=== PATIENT | male | born 1960 | race Caucasian/White ===

== ENCOUNTER 2017-09-22 07:30 | Inpatient (IN) | payer OTHER ==
[~2017-09-22] VITALS: Ht 175.3 cm; Wt 124.7 kg
[2017-10-06] VITALS (8 sets, daily range): BP systolic 105–140; BP diastolic 45–84
[2017-10-06] MEDS ORDERED: TERAZOSIN5 MG PO (06:48)
[2017-10-06] MEDS ORDERED: ISOSORB MONO30 MG PO (06:49)
[2017-10-06] MEDS ORDERED: [UNRECOGNIZED DRUG - OTHER] PO (06:49)
[2017-10-06] MEDS ORDERED: PRILOSEC20 MG/CAP PO (06:49)
[2017-10-06] MEDS ORDERED: GEMFIBROZIL PO (06:49)
[2017-10-06] MEDS ORDERED: [UNRECOGNIZED DRUG - OTHER] PO (06:50)
[2017-10-06] MEDS ORDERED: LIPITOR20 M1 PO (06:50)
[2017-10-06] MEDS ORDERED: RANITIDINE150 M1 PO (06:50)
[2017-10-06] MEDS ORDERED: CALCIUM500 M4 PO (06:50)
[2017-10-06] MEDS ORDERED: BENADRYL 25MG C25 MG PO (06:51)
[2017-10-06] MEDS ORDERED: VENLAFAXINE HCL75 M1 PO (06:51)
[2017-10-06] MEDS ORDERED: LEVOTHYROXIN50 MCG PO (06:51)
[2017-10-06] MEDS ORDERED: COUMADIN5 MG PO (06:52)
[2017-10-06] MEDS ORDERED: ASPIRIN81 MG PO (06:52)
[2017-10-06 07:24] LABS: HEMATOCRIT 44.6 % (39.0-50.0); HEMOGLOBIN 14.8 g/dl (14.0-18.0); IMMATURE GRANULOCYTES 0.3 % (0.0-1.0); MEAN CORPUSCULAR HGB 30.2 pG CALC (26.0-32.0); MEAN CORPUSCULAR HGB CONC 33.2 g/L CALC (32.0-36.0); NEUT# 4.94 thou/uL (1.82-7.42); RED BLOOD COUNT 4.9 mill/uL (4.70-6.10); RED CELL DISTRI WIDTH 13.3 % (11.5-15.5)
[2017-10-06 07:58] LABS: INTERNATIONAL NORMALIZED RATIO 1.1 RATIO (0.7-1.3)
[2017-10-07] VITALS: BP 121/66
[2017-10-07 05:00] VITALS: BP 100/62
[2017-10-07 05:35] LABS: IMMATURE GRANULOCYTES 0.5 % (0.0-1.0); MEAN CELL VOLUME 93.6 fL CALC (80.0-100.0); MEAN CORPUSCULAR HGB 30.3 pG CALC (26.0-32.0); MEAN CORPUSCULAR HGB CONC 32.3 g/L CALC (32.0-36.0); NEUT# 15.64 thou/uL (1.82-7.42); RED BLOOD COUNT 3.93 mill/uL (4.70-6.10); RED CELL DISTRI WIDTH 13.4 % (11.5-15.5)
[2017-10-07 05:39] LABS: HEMATOCRIT 36.8 % (39.0-50.0); HEMOGLOBIN 11.9 g/dl (14.0-18.0)
[2017-10-07 06:02] LABS: ANION GAP 17 (6-22 (CALC)); BUN 15 mg/dL (9-20); BUN/CREATININE RATIO 13 (12-20 (CALC)); CARBON DIOXIDE 30 mmol/l (22-30); CHLORIDE 97 mmol/l (95-108); CREATININE 1.1 mg/dL (0.7-1.3); GFR > 60 ML/MIN (>=60 (CALC)); GFR FOR AFR.AMER. > 60 ML/MIN (>=60 (CALC)); POTASSIUM 4.5 mmol/l (3.5-5.1); SODIUM 139 mmol/l (137-146)
[2017-10-07 06:32] LABS: INTERNATIONAL NORMALIZED RATIO 1.1 RATIO (0.7-1.3); PROTHROMBIN TIME 12.7 SECONDS (9.0-12.5)
[2017-10-07 08:50] VITALS: BP 108/53
[2017-10-07 09:35] LABS: URINE BILIRUBIN - DIPSTICK NEGATIVE (NEGATIVE); URINE BLOOD DIPSTICK LARGE (NEGATIVE); URINE COLOR YELLOW; URINE GLUCOSE - DIPSTICK NEGATIVE (NEGATIVE); URINE KETONE NEGATIVE (NEGATIVE); URINE LEUK ESTERASE SMALL (Negative); URINE NITRITE - DIPSTICK NEGATIVE (Negative); URINE PROTEIN - DIPSTICK TRACE mg/dL (NEG-TRACE); URINE SPECIFIC GRAVITY >=1.030; URINE UROBILINOGEN - DIPSTICK 0.2 E.U./dL (0.2)
[2017-10-07 09:44] LABS: URINE CLARITY CLOUDY; URINE RBC 25-50 RBC/hpf (0-5)
[2017-10-07 09:45] LABS: URINE BACTERIA FEW hpf; URINE EPITHELIAL CELLS FEW EPI/hpf (0-FEW); URINE MUCUS FEW hpf (NONE-FEW)
[2017-10-07 11:15] VITALS: BP 110/50
[2017-10-07 15:20] VITALS: BP 113/54
[2017-10-07 19:10] VITALS: BP 119/51
[2017-10-08] VITALS (7 sets, daily range): BP systolic 104–130; BP diastolic 45–75
[2017-10-08 05:39] LABS: INTERNATIONAL NORMALIZED RATIO 1.1 RATIO (0.7-1.3); PROTHROMBIN TIME 11.8 SECONDS (9.0-12.5)
[2017-10-08 05:44] LABS: ANION GAP 14 (6-22 (CALC)); BUN 16 mg/dL (9-20); BUN/CREATININE RATIO 19 (12-20 (CALC)); CARBON DIOXIDE 32 mmol/l (22-30); CHLORIDE 94 mmol/l (95-108); CREATININE 0.9 mg/dL (0.7-1.3); GFR > 60 ML/MIN (>=60 (CALC)); GFR FOR AFR.AMER. > 60 ML/MIN (>=60 (CALC)); MAGNESIUM 1.8 mg/dL (1.6-2.3); POTASSIUM 4.1 mmol/l (3.5-5.1); SODIUM 135 mmol/l (137-146)
[2017-10-08 05:50] LABS: IMMATURE GRANULOCYTES 0.6 % (0.0-1.0); MEAN CELL VOLUME 91.9 fL CALC (80.0-100.0); MEAN CORPUSCULAR HGB 30.8 pG CALC (26.0-32.0); MEAN CORPUSCULAR HGB CONC 33.6 g/L CALC (32.0-36.0); NEUT# 16.19 thou/uL (1.82-7.42); RED BLOOD COUNT 3.21 mill/uL (4.70-6.10); RED CELL DISTRI WIDTH 13.2 % (11.5-15.5)
[2017-10-08 05:51] LABS: HEMATOCRIT 29.5 % (39.0-50.0); HEMOGLOBIN 9.9 g/dl (14.0-18.0)
[2017-10-09 04:15] VITALS: BP 113/61
[2017-10-09 05:07] LABS: HEMATOCRIT 28.4 % (39.0-50.0); HEMOGLOBIN 9.3 g/dl (14.0-18.0)
[2017-10-09 05:18] LABS: ANION GAP 14 (6-22 (CALC)); BUN 14 mg/dL (9-20); BUN/CREATININE RATIO 17 (12-20 (CALC)); CARBON DIOXIDE 31 mmol/l (22-30); CHLORIDE 97 mmol/l (95-108); CREATININE 0.8 mg/dL (0.7-1.3); GFR > 60 ML/MIN (>=60 (CALC)); GFR FOR AFR.AMER. > 60 ML/MIN (>=60 (CALC)); POTASSIUM 4.6 mmol/l (3.5-5.1); SODIUM 137 mmol/l (137-146)
[2017-10-09 05:22] LABS: PROTHROMBIN TIME 11.2 SECONDS (9.0-12.5)
[2017-10-09 08:04] VITALS: BP 142/72
[2017-10-09] MEDS ORDERED: GLYCOLAX3350 N1 PO (13:34)
[2017-10-09] MEDS ORDERED: PERCOCET 10/31 COMBO PO (13:34)
[2017-10-09 15:00] VITALS: BP 125/54
[2017-10-09 19:00] VITALS: BP 132/67
[2017-10-10 06:08] LABS: HEMATOCRIT 27.2 % (39.0-50.0); IMMATURE GRANULOCYTES 0.6 % (0.0-1.0); MEAN CELL VOLUME 92.2 fL CALC (80.0-100.0); MEAN CORPUSCULAR HGB 30.5 pG CALC (26.0-32.0); MEAN CORPUSCULAR HGB CONC 33.1 g/L CALC (32.0-36.0); NEUT# 6.65 thou/uL (1.82-7.42); RED BLOOD COUNT 2.95 mill/uL (4.70-6.10); RED CELL DISTRI WIDTH 13.2 % (11.5-15.5)
[2017-10-10 06:12] LABS: ANION GAP 12 (6-22 (CALC)); BUN 12 mg/dL (9-20); BUN/CREATININE RATIO 16 (12-20 (CALC)); CARBON DIOXIDE 31 mmol/l (22-30); CHLORIDE 95 mmol/l (95-108); CREATININE 0.8 mg/dL (0.7-1.3); GFR > 60 ML/MIN (>=60 (CALC)); GFR FOR AFR.AMER. > 60 ML/MIN (>=60 (CALC)); MAGNESIUM 2.1 mg/dL (1.6-2.3); POTASSIUM 4.1 mmol/l (3.5-5.1); SODIUM 134 mmol/l (137-146)
[2017-10-10 08:07] VITALS: BP 153/77
[2017-10-10 08:11] VITALS: BP 153/77
== END 2017-10-10 17:12 | disposition designated cancer center or children's hospital (05) | DRG 470 ==
LOC: MS2 10-06 06:29
PROVIDERS: Nurse Practitioner Family; ADMIT Orthopaedic Surgery; ATTEND Internal Medicine
PROC: 0SR904A Replacement of Right Hip Joint with Ceramic on Polyethylene Synthetic Substitute, Uncemented, Open Approach (ICD-10-PCS; principal; 2017-10-06)
PROC: 0T9B70Z Drainage of Bladder with Drainage Device, Via Natural or Artificial Opening (ICD-10-PCS; 2017-10-06)
DX: M87.851 Other osteonecrosis, right femur (principal); K56.7 Ileus, unspecified; K91.89 Other postprocedural complications and disorders of digestive system; E03.9 Hypothyroidism, unspecified; I10 Essential (primary) hypertension; J44.9 Chronic obstructive pulmonary disease, unspecified; M16.11 Unilateral primary osteoarthritis, right hip; K21.9 Gastro-esophageal reflux disease without esophagitis; E78.5 Hyperlipidemia, unspecified; R33.8 Other retention of urine; Y83.1 Surgical operation with implant of artificial internal device as the cause of abnormal reaction of the patient, or of later complication, without mention of misadventure at the time of the procedure; Z79.01 Long term (current) use of anticoagulants; Z87.891 Personal history of nicotine dependence; Z86.711 Personal history of pulmonary embolism
CPT/HCPCS: J2710; S0164

== ENCOUNTER 2017-12-04 09:00 | Outpatient (RCR) | payer OTHER ==
[~2017-12-04 09:00] MED LIST: ASPIRIN81 MG PO; BENADRYL 25MG C25 MG PO; CALCIUM500 M4 PO; COUMADIN5 MG PO; GEMFIBROZIL PO; GLYCOLAX3350 N1 PO; ISOSORB MONO30 MG PO; LEVOTHYROXIN50 MCG PO; LIPITOR20 M1 PO; PERCOCET 10/31 COMBO PO; PRILOSEC20 MG/CAP PO; RANITIDINE150 M1 PO; TERAZOSIN5 MG PO; VENLAFAXINE HCL75 M1 PO; [UNRECOGNIZED DRUG - OTHER] PO; [UNRECOGNIZED DRUG - OTHER] PO
== END 2017-12-04 10:00 | disposition home or self-care (01) | DRG 556 ==
LOC: PT 09:00
PROVIDERS: ATTEND Internal Medicine
DX: M25.551 Pain in right hip (principal); M25.561 Pain in right knee; M25.571 Pain in right ankle and joints of right foot; M79.89 Other specified soft tissue disorders

== ENCOUNTER 2018-01-06 09:00 | Outpatient (RCR) | payer OTHER | END 2018-01-06 10:00 | disposition home or self-care (01) | DRG 556 | LOC: PT 09:00 | PROVIDERS: ATTEND Internal Medicine | DX: M25.551 Pain in right hip (principal); M79.671 Pain in right foot; M79.605 Pain in left leg ==

== ENCOUNTER 2018-05-29 01:32 | Emergency (ER) | payer OTHER ==
[~2018-05-29] VITALS: Ht 175.3 cm; Wt 104.5 kg
[2018-05-29] MEDS ORDERED: CYMBALTA60 MG PO (01:57)
[2018-05-29] MEDS ORDERED: BENADRYL 25MG C25 MG PO (01:58)
[2018-05-29] MEDS ORDERED: LOPID600 MG PO (02:00)
[2018-05-29 03:10] VITALS: BP 142/62
== END 2018-05-29 03:15 | disposition designated cancer center or children's hospital (05) | DRG 605 ==
LOC: ED 01:32
PROC: 0HQEXZZ Repair Left Lower Arm Skin, External Approach (ICD-10-PCS; principal; 2018-05-29)
PROC: 0HQDXZZ Repair Right Lower Arm Skin, External Approach (ICD-10-PCS; 2018-05-29)
DX: S51.812A Laceration without foreign body of left forearm, initial encounter (principal); S51.811A Laceration without foreign body of right forearm, initial encounter; S11.91XA Laceration without foreign body of unspecified part of neck, initial encounter; F32.9 Major depressive disorder, single episode, unspecified; X78.8XXA Intentional self-harm by other sharp object, initial encounter; Y92.149 Unspecified place in prison as the place of occurrence of the external cause